=== PATIENT | female | born 2000 | race Caucasian/White ===

== ENCOUNTER → 2023-09-08 | Outpatient (CLI) | payer OTHER | LOC: M LAB 14:19 | PROVIDERS: ATTEND Registered Nurse | DX: N91.2 Amenorrhea, unspecified (principal) ==

== ENCOUNTER → 2023-10-28 | Outpatient (REF) | payer OTHER | LOC: M PLALAB 14:21 | PROVIDERS: ATTEND Advanced Practice Midwife | DX: Z34.01 Encounter for supervision of normal first pregnancy, first trimester (principal); Z53.8 Procedure and treatment not carried out for other reasons ==

== ENCOUNTER → 2023-10-28 | Outpatient (CLI) | payer OTHER ==
[2023-10-28 18:23] LABS: HEMATOCRIT 38.2 % (36.0-47.0); HEMOGLOBIN 13.1 g/dl (12.0-15.5); MEAN CORPUSCULAR HEMOGLOBIN 30.5 pg (27.0-33.0); MEAN CORPUSCULAR HGB CONC 34.3 g/dl (32.0-36.5); MEAN CORPUSCULAR VOLUME 88.8 fl (80.0-96.0); PLATELET COUNT, AUTOMATED 229 10^3/uL (150-450); WHITE BLOOD COUNT 9.4 10^3/uL (4.0-10.0)
[2023-10-28 19:09] LABS: HEPATITIS B SURFACE ANTIGEN NEGATIVE (NEGATIVE)
[2023-10-28 19:21] LABS: HIV 1&2 SCREEN NEGATIVE (NEGATIVE)
[2023-10-28 19:29] LABS: HEPATITIS C VIRUS ABY INDEX < 0.02 INDEX (<0.8)
[2023-10-28 19:38] LABS: GC DNA AMPLIFICATION NEGATIVE (NEGATIVE)
== END ==
LOC: M PLALAB 14:35
PROVIDERS: ATTEND Advanced Practice Midwife
DX: Z34.01 Encounter for supervision of normal first pregnancy, first trimester (principal)

== ENCOUNTER → 2023-11-26 | Outpatient (REF) | payer OTHER | LOC: M PLALAB 13:21 | PROVIDERS: ATTEND Advanced Practice Midwife | DX: Z34.02 Encounter for supervision of normal first pregnancy, second trimester (principal) ==

== ENCOUNTER → 2023-12-13 | Outpatient (CLI) | payer OTHER | LOC: M RAD 16:07 | PROVIDERS: ATTEND Advanced Practice Midwife | DX: Z34.02 Encounter for supervision of normal first pregnancy, second trimester (principal) ==

== ENCOUNTER → 2024-01-10 | Outpatient (CLI) | payer OTHER | LOC: M RAD 12:21 | PROVIDERS: ATTEND Obstetrics & Gynecology | DX: B95.1 Streptococcus, group B, as the cause of diseases classified elsewhere (principal); Z3A.22 22 weeks gestation of pregnancy ==

== ENCOUNTER → 2024-01-25 | Outpatient (CLI) | payer OTHER ==
[2024-01-25 13:07] LABS: HEMATOCRIT 38.4 % (36.0-47.0); HEMOGLOBIN 12.9 g/dl (12.0-15.5); MEAN CORPUSCULAR HEMOGLOBIN 30.9 pg (27.0-33.0); MEAN CORPUSCULAR HGB CONC 33.6 g/dl (32.0-36.5); MEAN CORPUSCULAR VOLUME 91.9 fl (80.0-96.0); PLATELET COUNT, AUTOMATED 237 10^3/uL (150-450); RED BLOOD COUNT 4.18 10^6/uL (4.00-5.40); WHITE BLOOD COUNT 8.8 10^3/uL (4.0-10.0)
[2024-01-25 13:28] LABS: GLUCOSE CHALLENGE TEST 1 HOUR 61 MG/DL (LESS THAN 140)
[2024-01-25 14:03] LABS: HIV 1&2 SCREEN NEGATIVE (NEGATIVE)
[2024-01-25 14:11] LABS: HEPATITIS C VIRUS ABY INDEX < 0.02 INDEX (<0.8)
[2024-01-25 15:20] LABS: GC DNA AMPLIFICATION NEGATIVE (NEGATIVE)
== END ==
LOC: M PLALAB 08:51
PROVIDERS: ATTEND Obstetrics & Gynecology
DX: Z34.82 Encounter for supervision of other normal pregnancy, second trimester (principal); Z3A.20 20 weeks gestation of pregnancy

== ENCOUNTER 2024-04-17 09:33 | Outpatient (CLI) | payer OTHER ==
[~2024-04-17] VITALS: Ht 149.9 cm; Wt 68.7 kg
[2024-04-17] MEDS ORDERED: PRENTAB9 PO (09:53)
[2024-04-17 09:55] VITALS: BP 112/81
[2024-04-17] MEDS ORDERED: HOME MED LIST COMPLETE! XX SCH (10:00)
[2024-04-17 10:23] LABS: HEMOGLOBIN 13.4 g/dl (12.0-15.5); MEAN CORPUSCULAR HEMOGLOBIN 28.6 pg (27.0-33.0); MEAN CORPUSCULAR HGB CONC 32.7 g/dl (32.0-36.5); MEAN CORPUSCULAR VOLUME 87.4 fl (80.0-96.0); PLATELET COUNT, AUTOMATED 219 10^3/uL (150-450); RED BLOOD COUNT 4.69 10^6/uL (4.00-5.40); WHITE BLOOD COUNT 8.1 10^3/uL (4.0-10.0)
[2024-04-17] MEDS: TERBUTALINE SULFATE 1 MG/ML 1ML VIAL SC ONE (11:25)
[2024-04-17 11:30] VITALS: BP 117/75
[2024-04-17 12:06] VITALS: BP 124/83
[2024-04-17 14:31] VITALS: BP 119/73
== END 2024-04-17 14:41 | disposition home or self-care (01) ==
LOC: M LDO 09:33
PROVIDERS: ATTEND Obstetrics & Gynecology
DX: O32.1XX9 Maternal care for breech presentation, other fetus (principal); Z3A.37 37 weeks gestation of pregnancy
CPT/HCPCS: 59025; 59412; 76815; 85027; 86850; 86900; 86901; G0463; J3105

== ENCOUNTER 2024-04-28 05:31 | Inpatient (IN) | payer OTHER ==
[2024-04-28] VITALS (9 sets, daily range): BP systolic 111–143; BP diastolic 58–85; TEMP 97.8–98; O2SAT 97–100
[~2024-04-28] VITALS: Ht 149.9 cm; Wt 69.4 kg
[~2024-04-28 05:31] MED LIST: PRENTAB9 PO
[2024-04-28] MEDS ORDERED: HOME MED LIST COMPLETE! XX SCH (06:30)
[2024-04-28 06:35] LABS: HEMATOCRIT 39.9 % (36.0-47.0); HEMOGLOBIN 13.2 g/dl (12.0-15.5); MEAN CORPUSCULAR HEMOGLOBIN 28.7 pg (27.0-33.0); MEAN CORPUSCULAR HGB CONC 33.1 g/dl (32.0-36.5); MEAN CORPUSCULAR VOLUME 86.7 fl (80.0-96.0); PLATELET COUNT, AUTOMATED 241 10^3/uL (150-450); WHITE BLOOD COUNT 9.4 10^3/uL (4.0-10.0)
[2024-04-28] MEDS ORDERED: MORPHINE PRES-FREE INJ 10 MG/10 ML VIAL As Ordered ONE (07:17)
[2024-04-28] MEDS ORDERED: KETOROLAC 60MG 2ML VIAL As Ordered ONE (07:18)
[2024-04-28] MEDS ORDERED: ONDANSETRON 4MG 2ML VIAL As Ordered ONE (07:18)
[2024-04-28] MEDS: ceFAZolin SOD 2 GM in IV 1 EA IV ONE (07:23)
[2024-04-28] MEDS: BICITRA 30ML SOLN UDC PO ONE (07:23)
[2024-04-28] MEDS: LACTATED RINGER'S 1000 ML IV STA (07:24)
[2024-04-28] MEDS: LR 1,000 ML IV SCH ×2 (07:24→08:45)
[2024-04-28] MEDS ORDERED: ePHEDrine INJ 50MG/ML 1ML VIAL As Ordered ONE (07:39)
[2024-04-28 07:43] LABS: HEPATITIS C VIRUS ABY INDEX < 0.02 INDEX (<0.8)
[2024-04-28] MEDS ORDERED: ACETAMINOPHEN 1000MG 100ML IV BAG As Ordered ONE (07:49)
[2024-04-28] MEDS ORDERED: OXYTOCIN 30UNITS IN 0.9% NaCl 500ML IV BAG As Ordered ONE (07:58)
[2024-04-28] MEDS ORDERED: CALCIUM CARBONATE 500 MG CHEW U/D PO PRN (08:45)
[2024-04-28] MEDS ORDERED: MOM 30ML SUSPENSION UDC PO PRN (08:45)
[2024-04-28] MEDS ORDERED: METHYLERGONOVINE MALEATE 0.2 MG TAB PO PRN (08:45)
[2024-04-28] MEDS ORDERED: RHOGAM 300MCG (1500IU) INJ IM SCH (08:45)
[2024-04-28] MEDS: OXYTOCIN DRIP 30 UNITS in IV 1 EA IV SCH (08:53)
[2024-04-28] MEDS: PRENATAL VITAMINS CHEWABLE TABLET PO SCH (09:00)
[2024-04-28] MEDS: DOCUSATE SODIUM 100MG CAPSULE PO SCH (09:00)
[2024-04-28] MEDS ORDERED: ONDANSETRON 4MG 2ML VIAL IV PRN (09:30)
[2024-04-28] MEDS ORDERED: **NOTE PATIENT COMMENT** MISC XX SCH ×2 (09:30)
[2024-04-28] MEDS ORDERED: NALOXONE INJ 0.4MG/1ML VIAL IV PRN ×4 (09:30)
[2024-04-28] MEDS ORDERED: METOCLOPRAMIDE INJ 10MG/2ML VIAL IV PRN ×2 (09:30)
[2024-04-28] MEDS ORDERED: SLF 3 ML SYR IV SCH (09:30)
[2024-04-28] MEDS: SLF 3 ML SYR IV SCH (09:30)
[2024-04-28] MEDS ORDERED: MEPERIDINE 25 MG/ML 1ML VIAL IV PRN (09:30)
[2024-04-28] MEDS ORDERED: diphenhydrAMINE 50MG/ML VIAL IV PRN ×2 (09:30)
[2024-04-28] MEDS: PERCOCET 5MG/325MG TAB PO PRN (12:38)
[2024-04-28] MEDS: KETOROLAC 30 MG/ML 1ML VIAL IV SCH (14:06)
[2024-04-28] MEDS: SIMETHICONE 80MG CHEW TAB PO PRN (15:47)
[2024-04-29] VITALS (7 sets, daily range): BP systolic 105–121; BP diastolic 61–85; O2SAT 97–100
[2024-04-29] MEDS: PERCOCET 5MG/325MG TAB PO PRN (06:48)
[2024-04-29 06:53] LABS: HEMATOCRIT 33.2 % (36.0-47.0); MEAN CORPUSCULAR HEMOGLOBIN 28.7 pg (27.0-33.0); MEAN CORPUSCULAR HGB CONC 32.2 g/dl (32.0-36.5); PLATELET COUNT, AUTOMATED 186 10^3/uL (150-450); RED BLOOD COUNT 3.73 10^6/uL (4.00-5.40); WHITE BLOOD COUNT 11.3 10^3/uL (4.0-10.0)
[2024-04-29 06:55] LABS: HEMOGLOBIN 10.7 g/dl (12.0-15.5)
[2024-04-29] MEDS: IBUPROFEN 800 MG TAB PO SCH (09:28)
[2024-04-30 01:50] VITALS: BP 109/70; O2SAT 99
[2024-04-30 05:57] VITALS: BP 104/72; O2SAT 100
[2024-04-30] MEDS: MEASLES,MUMPS,RUBELLA VACCINE INJ (MMR-II) SC.IMMUN ONE (09:00)
[2024-04-30] MEDS ORDERED: PERCOCET PO (10:21)
== END 2024-04-30 11:25 | disposition home or self-care (01) | DRG 788 ==
LOC: EEVIPCON 05:31 → M LDI 05:31 → M OBS 10:13
PROVIDERS: ADMIT Obstetrics & Gynecology; ATTEND Obstetrics & Gynecology
PROC: 10D00Z1 Extraction of Products of Conception, Low, Open Approach (ICD-10-PCS; principal; 2024-04-28 07:30)
DX: O32.1XX0 Maternal care for breech presentation, not applicable or unspecified (principal); Z3A.39 39 weeks gestation of pregnancy; Z37.0 Single live birth; N83.8 Other noninflammatory disorders of ovary, fallopian tube and broad ligament; O26.893 Other specified pregnancy related conditions, third trimester

== ENCOUNTER → 2024-07-11 | Outpatient (REF) | payer OTHER ==
[~2024-07-11] MED LIST changes: +PERCOCET PO
== END ==
LOC: M SFHCWAGY 17:35
PROVIDERS: ATTEND Obstetrics & Gynecology
DX: Z01.419 Encounter for gynecological examination (general) (routine) without abnormal findings (principal)

== ENCOUNTER → 2024-10-20 | Outpatient (REF) | payer OTHER | LOC: M LAB REF 12:56 | PROVIDERS: ATTEND Registered Nurse | DX: R35.0 Frequency of micturition (principal) ==